=== PATIENT | female | born 1970 | race Caucasian/White ===

== ENCOUNTER → 2019-12-03 11:55 | Outpatient (CLI) | payer BC, OTHER, SELFPAY ==
--- NOTE | ~2019-12-03 | XR_ITS ---
EXAMINATION: XR abdomen/kub 1V INDICATION: Flank pain TECHNIQUE: Supine view of the abdomen was obtained. COMPARISON: CT, 07/21/2018 FINDINGS: There are phleboliths in the pelvis. No definite urinary tract calculi are identified. A la rge volume of colonic stool is present. The bowel gas pattern is normal. IMPRESSION: 1. No urinary tract calculi identified. 2. Constipation. Reviewed, dictated and finalized at location A. ENTARY SCHOOL TEACHER'S AIDE
== END ==
PROVIDERS: Visit Provider Physician Assistant
DX: K59.00 Constipation, unspecified (principal)
CPT/HCPCS: 74018

== ENCOUNTER → 2019-12-19 16:46 | Outpatient (CLI) | payer BC, OTHER, SELFPAY ==
--- NOTE | ~2019-12-19 | MR_ITS ---
EXAMINATION: MR shoulder LT wo con DATE: 12/19/2019 17:42 INDICATION: Unspecified rotator cuff tear at the left shoulder with persistent left shoulder pain pos t one year physical therapy. TECHNIQUE: Magnetic resonance imaging (MRI) of the left shoulder was performed without intravenous co ntrast. Sequences included axial PD-weighted FS FSE, coronal oblique PD-weighted FS FSE, coronal obli que T2-weighted FS FSE, sagittal PD-weighted FS FSE, and sagittal T1-weighted SE. COMPARISON: None. FINDINGS: Coracoacromial arch: The acromion undersurface is curved in morphology (type II). The coracoacromial ligament is normal. A cromioclavicular joint is normal. Rotator cuff: The supraspinatus, infraspinatus and teres minor tendons are normal. The subscapularis tendon is norm al. Normal rotator cuff muscle bulk and signal. Biceps tendon, glenoid labrum and glenohumeral cartilage: Long head of the biceps tendon is normal. Glenoid labrum is normal. Glenohumeral cartilage is normal. Fluid: Small amount of fluid in the long head biceps tendon sheath which is disproportionate to the physiolo gic amount fluid in the glenohumeral joint space consistent with mild bicipital tenosynovitis. No loo se osteochondral bodies. Abnormal fluid signal in the subacromial/subdeltoid bursa consistent to sugg est bursitis. Bones: Normal marrow signal with no edema, fracture or abnormal marrow replacing process. Mild cystic change at the greater tuberosity. IMPRESSION: 1. Mild bicipital tenosynovitis. Otherwise unremarkable left shoulder MRI. Reviewed, dictated and finalized at location A. KEEPER
== END ==
PROVIDERS: PCP Family Medicine; Visit Provider Orthopaedic Surgery
DX: M75.22 Bicipital tendinitis, left shoulder (principal)
CPT/HCPCS: 73221

== ENCOUNTER → 2020-01-02 12:16 | Outpatient (CLI) | payer BC, OTHER, SELFPAY ==
--- NOTE | ~2020-01-02 | CT_ITS ---
EXAMINATION: CT abdomen pelvis wo con EXAM DATE: 01/02/2020 12:44 INDICATION: Bilateral flank pain. Right oophorectomy. TECHNIQUE: Spiral CT of the abdomen and pelvis was performed without contrast. Axial, coronal and s agittal images were reviewed. The dose-length product (DLP) for this examination was 318.30 mGy-cm. The exposure was tailored according to patient size (auto mA exposure control), and iterative recons truction (ASIR) was used as additional dose reduction technique. Comparison is made to prior examinat ion from 07/13/2018. FINDINGS: The liver, spleen, adrenal glands and pancreas are unremarkable. Gallbladder is unremarkab le. No biliary obstruction. There is no nephrolithiasis or hydronephrosis. The uterus is antevert ed and morphologically normal. The bladder is unremarkable. There is no retroperitoneal or pelvic lymphadenopathy. The appendix is normal. The stomach and small bowel are unremarkable. There is colonic fluid, corre late for diarrhea. No free intraperitoneal gas. The heart is normal in size. There are no perica rdial or pleural effusions. The lung bases are unremarkable. There are no significant osseous abnor malities identified. IMPRESSION: 1. No nephrolithiasis, hydronephrosis or acute findings. 2. Colonic fluid. Reviewed, dictated and finalized at location B.
== END ==
PROVIDERS: Visit Provider Nurse Practitioner Adult Health
DX: R10.9 Unspecified abdominal pain (principal)
CPT/HCPCS: 74176

== ENCOUNTER 2020-05-26 13:33 | Outpatient (CLI) | payer BC, OTHER, SELFPAY ==
--- NOTE | ~2020-05-26 | MMUS_ITS ---
EXAMINATION: MM diagnostic [facility] BI w roberto carlos, US breast LT limited HISTORY: Follow-up breast mass TECHNIQUE: Additional 3-D tomosynthesis images of the breasts were performed and synthetic 2-D images were generated. CAD analysis was submitted and interpreted. High resolution left breast ultrasound w as performed. COMPARISON: Comparison to multiple prior studies sequentially, with oldest reviewed study dated 06/23. BREAST PARENCHYMAL COMPOSITION: The breasts are heterogenously dense, which may obscure small masses. FINDINGS: MAMMOGRAPHIC FINDINGS: The right breast is stable without evidence for malignancy. There are benign scattered breast calcifi cations. There is a 1 cm circumscribed mass upper outer quadrant of the left breast which is more pro minent than on prior examination. ULTRASOUND: Left breast ultrasound: There are multiple simple and complicated cysts of the left breast corresponding to the abnormality s een on mammogram. The largest cyst is located at 2:00, 2 cm from the nipple measuring 1.4 cm maximum dimension. IMPRESSION: 1. No evidence for malignancy in either breast. Multiple benign left breast cyst. 2. Routine yearly screening mammogram and regular clinical breast examination are recommended. BI-RADS Category 2: Benign finding(s). Reviewed, dictated and finalized at location A. IMPRESSION: 1. No evidence for malignancy in either breast. Multiple benign left breast cys t. 2. Routine yearly screening mammogram and regular clinical breast examination a re recommended. BI-RADS Category 2: Benign finding(s).
== END 2020-05-26 13:34 | disposition home or self-care (01) ==
LOC: ANHIMG 13:35
PROVIDERS: PCP Family Medicine; Visit Provider Family Medicine
DX: R92.8 Other abnormal and inconclusive findings on diagnostic imaging of breast (principal)
CPT/HCPCS: 76642; 77062; 77066; G0279

== ENCOUNTER 2020-06-02 14:20 | Outpatient (CLI) | payer BC, OTHER, SELFPAY ==
--- NOTE | ~2020-06-02 | US_ITS ---
EXAMINATION: US pelvic complete w TV EXAM DATE: 06/02/2020 15:18 INDICATION: Premenopausal menorrhagia. TECHNIQUE: Pelvic transabdominal and transvaginal sonogram was performed. There are multiple graysca le and Doppler images available for interpretation. There is no prior study for comparison. FINDINGS: Uterus measures 12.9 x 3.5 x 7.0 cm, and is morphologically normal. Endometrial stripe me asures 7 mm, within normal limits. There is a nabothian cyst. There is no free pelvic fluid. Right adnexa: The ovary is not identified. There is no adnexal mass. Left adnexa: The ovary is not identified. There is no adnexal mass. IMPRESSION: Unremarkable pelvic ultrasound exam. Reviewed, dictated and finalized at location A.
== END 2020-06-02 14:21 | disposition home or self-care (01) ==
PROVIDERS: PCP Family Medicine; Visit Provider Physician Assistant
DX: N92.4 Excessive bleeding in the premenopausal period (principal)
CPT/HCPCS: 76830; 76856

== ENCOUNTER → 2021-01-02 10:50 | Outpatient (CLI) | payer BC, OTHER, SELFPAY ==
--- NOTE | ~2021-01-02 | XR_ITS ---
EXAMINATION: XR lumbar spine 2-3V DATE: 01/02/2021 11:52 INDICATION: Low back pain TECHNIQUE: Anteroposterior and lateral views of the lumbar spine, and cone-down lateral view of the l umbosacral junction were obtained. COMPARISON: CT, 01/02/2020 FINDINGS: The vertebral body heights, alignment, and intervertebral disc spaces are normal. There is no fracture. Small degenerative osteophytes project from the anterior endplates of multiple vertebral bodies. IMPRESSION: 1. Mild lumbar spondylosis. Reviewed, dictated and finalized at location A. BASE SPECIALIST IMPRESSION: 1. Mild lumbar spondylosis.
== END ==
PROVIDERS: PCP Physician Assistant; Visit Provider Physician Assistant
DX: M47.896 Other spondylosis, lumbar region (principal)
CPT/HCPCS: 72100

== ENCOUNTER → 2021-02-06 11:41 | Outpatient (CLI) | payer BC, OTHER, SELFPAY ==
--- NOTE | ~2021-02-06 | XR_ITS ---
EXAMINATION: XR thoracic spine 2V DATE: 02/06/2021 12:39 INDICATION: Thoracic back pain TECHNIQUE: AP and lateral views of the thoracic spine are obtained. COMPARISON: None. FINDINGS: There is no fracture, dislocation, or subluxation. Mild loss of intervertebral disc space h eight is present in the midthoracic spine. The vertebral body heights are normal. Small degenerative osteophytes project from the anterior endplates of multiple vertebral bodies. IMPRESSION: 1. Mild thoracic spondylosis without acute findings. Reviewed, dictated and finalized at location B.
--- NOTE | ~2021-02-06 | XR_ITS ---
EXAMINATION:XR cervical spine 4-5V DATE: 02/06/2021 12:39 INDICATION: Neck pain TECHNIQUE: AP, lateral, lateral swimmers and odontoid views of the cervical spine are provided. COMPARISON: None FINDINGS: There are 2 mm of retrolisthesis of C3 on C4. The odontoid is intact. No fracture is identi fied. There is moderate loss of intervertebral disc space height at C5-6. Small degenerative osteophy shae project from the anterior endplates of C5 and C6. There is moderate facet and uncovertebral joint osteoarthritis of the mid and lower cervical spine. IMPRESSION: 1. Moderate cervical spondylosis without acute findings. Reviewed, dictated and finalized at location B.
== END ==
PROVIDERS: PCP Family Medicine; Visit Provider Physician Assistant
DX: M47.23 Other spondylosis with radiculopathy, cervicothoracic region (principal)
CPT/HCPCS: 72050; 72070

== ENCOUNTER 2021-02-13 12:35 | Outpatient (CLI) | payer BC, OTHER, SELFPAY ==
--- NOTE | ~2021-02-13 | MR_ITS ---
EXAMINATION: MR lumbar spine wo con DATE: 02/13/2021 13:11 INDICATION: Low back pain. TECHNIQUE: Magnetic resonance imaging (MRI) of the lumbar spine was performed without intravenous con trast. Sequences included sagittal T2-weighted FSE, sagittal T2-weighted FS FSE, sagittal T1-weighted FSE, and axial T2-weighted FSE. COMPARISON: Lumbar spine radiographs 01/02/2021 FINDINGS: There is 4 degrees levocurvature of lumbar spine. Vertebral body heights are normal. There is mildly decreased disc height at L4-L5. The distal spinal cord signal intensity is normal. The conu s medullaris is at L2. The following disc levels are specifically discussed: L1-L2: The disc does not extend beyond the endplate margin. There is no facet joint osteoarthritis. T here is no neural foraminal stenosis. There is no central canal stenosis. L2-L3: The disc does not extend beyond the endplate margin. There is mild bilateral facet joint osteo arthritis. There is no neural foraminal stenosis. There is no central canal stenosis. L3-L4: The disc does not extend beyond the endplate margin. There is no facet joint osteoarthritis. T here is no neural foraminal stenosis. There is no central canal stenosis. L4-L5: The disc is bulging. There is moderate bilateral facet joint osteoarthritis. There is mild kate ateral neural foraminal stenosis. There is mild central canal stenosis. L5-S1: The disc does not extend beyond the endplate margin. There is a right and moderate left facet joint osteoarthritis. There is no neural foraminal stenosis. There is no central canal stenosis. IMPRESSION: 1. Mild lumbar spondylosis. Reviewed, dictated and finalized at location B. IMPRESSION: 1. Mild lumbar spondylosis.
== END 2021-02-13 12:36 | disposition home or self-care (01) ==
PROVIDERS: PCP Family Medicine; Visit Provider Physician Assistant
DX: M47.896 Other spondylosis, lumbar region (principal)
CPT/HCPCS: 72148

== ENCOUNTER 2021-06-11 14:34 | Outpatient (CLI) | payer BC, OTHER, SELFPAY ==
--- NOTE | ~2021-06-11 | MM_ITS ---
EXAMINATION: MM screening [facility] BI w roberto carlos HISTORY: Screening mammogram TECHNIQUE: Craniocaudal and mediolateral oblique 3-D tomosynthesis images were obtained and synthetic 2-D images were generated. CAD analysis was submitted and interpreted. COMPARISON: 05/26/2020, 05/08/2019, 06/23/2017 BREAST PARENCHYMAL COMPOSITION: The breasts are heterogeneously dense, which may obscure small masses . FINDINGS: Obscured left breast masses have been previously characterized as cysts. There is no eviden ce of suspicious mass, calcification, or architectural distortion to suggest malignancy in either leslie ast. There has been no suspicious interval change. IMPRESSION: 1. No mammographic evidence of malignancy. 2. Recommend routine screening mammography in one year. BI-RADS Category 2: Benign finding(s). Reviewed, dictated and finalized at location A.
== END 2021-06-11 14:35 | disposition home or self-care (01) ==
LOC: ANHIMG 14:37
PROVIDERS: PCP Family Medicine; Visit Provider Family Medicine
DX: Z12.31 Encounter for screening mammogram for malignant neoplasm of breast (principal)
CPT/HCPCS: 77063; 77067

== ENCOUNTER 2022-08-13 09:52 | Outpatient (CLI) | payer BC, OTHER, SELFPAY ==
--- NOTE | ~2022-08-13 | MM_ITS ---
EXAMINATION: MM screening [facility] BI w roberto carlos HISTORY: Screening TECHNIQUE: Craniocaudal and mediolateral oblique 3-D tomosynthesis images were obtained and synthetic 2-D images were generated. CAD analysis was submitted and interpreted. COMPARISON: Comparison to multiple prior studies sequentially, with oldest reviewed study dated 06/23. BREAST PARENCHYMAL COMPOSITION: The breasts are extremely dense, which lowers the sensitivity of mamm ography FINDINGS: The right breast is stable without evidence for malignancy. There are developing partially obscured masses in the upper outer quadrant of the left breast. IMPRESSION: 1. Developing cluster of masses centered in the upper outer quadrant of the left breast. 2. Additional mammographic views and possible breast ultrasound are recommended. BI-RADS CATEGORY 0 - INCOMPLETE STUDY, NEED ADDITIONAL IMAGING EVALUATION. Reviewed, dictated and finalized at location A. IMPRESSION: 1. Developing cluster of masses centered in the upper outer quadrant of the lef t breast. 2. Additional mammographic views and possible breast ultrasound are recommended . BI-RADS CATEGORY 0 - INCOMPLETE STUDY, NEED ADDITIONAL IMAGING EVALUATION.
== END 2022-08-13 09:53 | disposition home or self-care (01) ==
LOC: ANHIMG 09:54
PROVIDERS: PCP Family Medicine; Visit Provider Physician Assistant
DX: Z12.31 Encounter for screening mammogram for malignant neoplasm of breast (principal); R92.8 Other abnormal and inconclusive findings on diagnostic imaging of breast
CPT/HCPCS: 77063; 77067

== ENCOUNTER 2022-08-23 01:53 | Day surgery (SDC) | payer BC, OTHER, SELFPAY ==
[2022-08-11 14:43] VITALS: BMI 22.9
--- NOTE | 2022-08-20 14:30 | PM.HPGS ---
History of Present Illness History of Present Illness Consent: Risks, benefits, and alternatives have been discussed and questions answered. Patient agrees to proceed with procedure. Chief complaint: hx of polyp Narrative: Ana Vaca is a 52 year old female referred for colon cancer screening. her maternal aunt and grandmother both had colon cancer. She herself had a polyp removed about 5 years ago. Review of Systems Review of Systems: All systems reviewed & are unremarkable except as noted in HPI and below PMFSH Social History Social History Living arrangements: with family Spiritual care concerns: No Meds Home Medications and Allergies Home Medications Medication Instructions Recorded Confirmed Type No Home Medications 12/03/19 08/11/22 History Allergies Allergy/AdvReac Type Severity Reaction Status Date / Time Dairy Allergy Intermediate SICK Uncoded 08/11/22 14:42 Exam Resp: Auscultation: clear to auscultation bilaterally Cardio: Rate: regular rate Rhythm: regular rhythm GI: GI Palp: Yes Soft to palpation and No Tenderness to palpation present (GI) Assessment and Plan Assessment and plan (1) Colon cancer screening: Code(s): Z12.11 - Encounter for screening for malignant neoplasm of colon Status: Acute Assessment and Plan: Colonoscopy with possible biopsy or polypectomy or cautery or injection of substances.
[2022-08-23 08:09] VITALS: BP 124/75; PULSE 72; RESP 16; TEMP 36.1; O2SAT 100; BMI 23.1
[2022-08-23] MEDS: LACTATED RINGERS 1,000 ML 150 ML IV CONT (08:21)
--- NOTE | 2022-08-23 08:41 | P.PNAN_ITS ---
Anes - Initial Pre Proc Eval Procedure: Operation Date: 08/23/22 09:00 Proposed Procedures p Screening Colonoscopy - Siddharth Ascencio MD Date/Time: 08/23/22 08:41 Surgeon: Siddharth Ascencio MD Pre Op Diagnosis: hx of polyp Patient Data Age: 52 Gender: F Height: 1.57 m Weight: 57.5 kg Last Vital Signs Temp 36.1 C L 08/23/22 08:09 Pulse 72 08/23/22 08:09 Resp 16 08/23/22 08:09 BP 124/75 08/23/22 08:09 Pulse Ox 100 08/23/22 08:09 O2 Del Method Room Air 08/23/22 08:09 Allergies Allergy/AdvReac Type Severity Reaction Status Date / Time Dairy Allergy Intermediate SICK Uncoded 08/11/22 14:42 Home Medications Medication Instructions Recorded Confirmed Type No Home Medications 12/03/19 08/11/22 History Patient hx anesthesia problems: none Family hx anesthesia problems: none Results Review: All pre-operative results and documents have been reviewed as part of the pre- operative evaluation. PMFSH Past Medical History Medical History (Updated 08/23/22 @ 08:43 by Michele Norton MD) Anemia Surgical History Surgical History (Updated 08/23/22 @ 08:43 by Michele Norton MD) H/O colonoscopy Social History Social History Living arrangements: with family Spiritual care concerns: No Anes - Eval Final PreProcedure Day of Procedure 08/23/22 08:41 Patient weight: normal Heart: regular rate and rhythm Lungs: clear to auscultation Airway: Mallampati scale class II Neurological: alert and oriented Last oral intake: >/= 8 hours ASA classification: II Emergent: no Anesthetic plan: proceed Anesthesia type and monitoring: general GIVS and standard monitoring Results Review: All pre-operative results and documents have been reviewed as part of the pre- operative evaluation. Informed Consent: The patient's anesthetic plan and its attendant risks and benefits were discussed with the patient/family/POA. Questions were solicited and answers provided to the satisfaction of the patient/family/POA.
[2022-08-23 09:16] VITALS: BP 100/59; PULSE 67; RESP 18; O2SAT 99
[2022-08-23 09:26] VITALS: BP 98/64; PULSE 63; RESP 19; O2SAT 100
[2022-08-23 09:36] VITALS: BP 102/71; PULSE 64; RESP 14; O2SAT 100
== END 2022-08-23 09:45 | disposition home or self-care (01) ==
PROVIDERS: PCP Physician Assistant; Visit Provider Internal Medicine Gastroenterology
PROC: 0DJD8ZZ Inspection of Lower Intestinal Tract, Via Natural or Artificial Opening Endoscopic (ICD-10-PCS; CPT 45378; principal; 2022-08-23 09:00)
DX: Z12.11 Encounter for screening for malignant neoplasm of colon (principal); K63.5 Polyp of colon; Z80.0 Family history of malignant neoplasm of digestive organs
CPT/HCPCS: 45385; 88305; J2704; J7120

== ENCOUNTER 2022-08-26 12:10 | Outpatient (CLI) | payer BC, OTHER, SELFPAY ==
--- NOTE | ~2022-08-26 | MMUS_ITS ---
EXAMINATION: MM diagnostic [facility] LT w roberto carlos, US breast LT complete HISTORY: Left breast mass follow-up TECHNIQUE: Additional 3-D tomosynthesis images of the left breast were performed and synthetic 2-D im ages were generated. CAD analysis was submitted and interpreted. High resolution complete left breast ultrasound was performed. COMPARISON: Comparison to multiple prior studies sequentially, with oldest reviewed study dated 06/23. BREAST PARENCHYMAL COMPOSITION: The breasts are heterogeneously dense, which may obscure small masses FINDINGS: MAMMOGRAPHIC FINDINGS: There is a 2.1 cm mass in the upper outer quadrant of the left breast. There are benign appearing dequan cifications. No suspicious architectural distortion. ULTRASOUND: Complete left breast US of all 4 quadrants of the breasts and retroareolar region was reviewed. There are multiple left breast cysts, largest at 2:00, 5 cm from the nipple measuring 2.1 x 1.8 x 1 cm cor responding to the mass seen on mammogram. There are multiple additional smaller cyst throughout the l eft breast. At 6:00 there is an oval circumscribed hypoechoic mass with low level internal echoes, pa rallel orientation and no posterior features measuring 7 mm maximum dimension. IMPRESSION: 1. Multiple left breast cysts. Probable benign hypoechoic 7 mm left breast mass at 6:00. 2. Recommend 6 month follow-up Limited left breast ultrasound BI-RADS category 3, probably benign findings. Reviewed, dictated and finalized at location A. IMPRESSION: 1. Multiple left breast cysts. Probable benign hypoechoic 7 mm left breast mass at 6:00. 2. Recommend 6 month follow-up Limited left breast ultrasound BI-RADS category 3, probably benign findings.
== END 2022-08-26 12:11 | disposition home or self-care (01) ==
PROVIDERS: PCP Physician Assistant; Visit Provider Family Medicine
DX: N63.21 Unspecified lump in the left breast, upper outer quadrant (principal); R92.8 Other abnormal and inconclusive findings on diagnostic imaging of breast
CPT/HCPCS: 76641; 77061; 77065; G0279

== ENCOUNTER 2023-02-15 09:50 | Outpatient (CLI) | payer BC, OTHER, SELFPAY ==
--- NOTE | ~2023-02-15 | CT_ITS ---
EXAMINATION:CT diagnostic chest wo con DATE: 02/15/2023 10:05 INDICATION: Sternal pain. TECHNIQUE: Computed tomography (CT) of the chest was performed without intravenous contrast. Automate d exposure control and iterative reconstruction technique were employed. The dose-length product (DLP ) was 154.87 mGy-cm. COMPARISON: CT abdomen and pelvis 01/02/2020 FINDINGS: There is mild scarring at the lung apices. Again seen is a 5 mm nodule in left lower lobe, likely benign. There is a 4 mm nodule in left lower lobe, likely benign. No pleural effusion. The hea rt size is normal. No pericardial effusion. There is mild thoracic spondylosis. There is mild pectus excavatum. No sternal fracture. IMPRESSION: 1. No etiology for the patient's symptoms. Reviewed, dictated and finalized at location A.
== END 2023-02-15 09:51 | disposition home or self-care (01) ==
PROVIDERS: PCP Family Medicine; Visit Provider Physician Assistant
DX: R07.9 Chest pain, unspecified (principal)
CPT/HCPCS: 71250

== ENCOUNTER → 2023-04-05 11:31 | Outpatient (CLI) | payer BC, OTHER, SELFPAY ==
--- NOTE | ~2023-04-05 | US_ITS ---
US breast LT limited DATE: 04/05/2023 11:43 INDICATION: Follow-up of probable benign left breast mass at 6:00 TECHNIQUE: Real-time imaging and color flow imaging targeted 6:00 area COMPARISON: 09/12/2022 left breast ultrasound FINDINGS: There are 2 contiguous circumscribed sonolucency with through transmission, no internal vas cularity, one measuring up to 7 mm, the other 3 mm dimension. These are benign in appearance. IMPRESSION: BI-RADS Category 2: Benign Recommendation: Routine mammographic screening Reviewed, dictated and finalized at Location A. Reviewed, dictated and finalized at location A.
== END ==
PROVIDERS: PCP Physician Assistant; Visit Provider Physician Assistant
DX: N63.25 Unspecified lump in the left breast, overlapping quadrants (principal)
CPT/HCPCS: 76642

== ENCOUNTER 2023-11-03 14:45 | Outpatient (CLI) | payer BC, OTHER, SELFPAY ==
[2023-11-03 15:04] LABS: Basophils Absolute Auto 0.1 K/mm3 (0.0-0.1); Basophils Percent Auto 1.2 % (0.2-1.2); Eosinophils Absolute Auto 0.3 K/mm3 (0-0.3); Eosinophils Percent Auto 4.9 % (0-4.4); Hematocrit 43.1 % (37.0-47.0); Hemoglobin 14.1 g/dL (12.0-15.0); Immature Granulocyte Absolute 0.02 K/mm3 (0.00-0.031); Immature Granulocyte Percent A 0.3 % (0-0.5); Lymphocytes Absolute Auto 1.73 K/mm3 (0.9-3.2); Mean Corpuscular HGB Conc 32.7 g/dl (32-36); Mean Corpuscular Hemoglobin 31.4 pg (26-34); Mean Platelet Volume 10.1 fl (7.4-10.4); Monocytes Absolute Auto 0.7 K/mm3 (0.1-0.6); Monocytes Percent Auto 9.6 % (2.6-8.5); Neutrophils Absolute Auto 4.1 K/mm3 (1.3-6.7); Platelet Count Result 282 k/mm3 (150-375); Red Blood Count 4.49 M/mm3 (4.2-5.4); Red Cell Distribution Width 12.8 % (11.5-14.5); White Blood Count 6.9 K/mm3 (4.5-10.0)
== END 2023-11-03 14:46 | disposition home or self-care (01) ==
LOC: ANHLAB 14:47
PROVIDERS: PCP Physician Assistant; Visit Provider Obstetrics & Gynecology
DX: Z01.818 Encounter for other preprocedural examination (principal); N81.4 Uterovaginal prolapse, unspecified
CPT/HCPCS: 36415; 85025; 86850; 86900; 86901

== ENCOUNTER 2023-11-11 00:25 | Day surgery (SDC) | payer BC, OTHER, SELFPAY ==
[2023-11-02 14:36] VITALS: BMI 23.8
--- NOTE | 2023-11-02 14:54 | PC.NURSE ---
Report to the Outpatient Waiting Room, entrance under the green pavilion located off [facility], at time _11:30AM___ on date Tue11/11/23 . Planned Procedure Time: _1:30PM . Time changes happen often and if your time is changed the preop area will call you the afternoon before. - You and your visitors (MAXIMUM OF 2 VISITORS IN THE PREOP AREA) will be asked to self-screen and do not enter if you have any COVID symptoms. - A mask is optional within the hospital at this time. *BRING A SMALL OVERNIGHT BAG IN PREPARATION FOR YOUR ADMISSION TO THE [facility]* Patients may have clear liquids (water, carbonated beverages, clear teas, apple juice) until 3 hours prior to surgery (10:30AM) with a maximum of 20 ounces. - No food from midnight until time of surgery. NO GUMS, MINTS, OR HARD CANDY - Take the following medications with a SIP of water the morning of surgery: __NONE DO NOT STOP ANY OF YOUR OTHER PRESCRIPTION MEDICATIONS PRIOR TO SURGERY ?EXCEPT THE FOLLOWING Medications to discontinue per physician ___ALL SUPPLEMENTS Date to take last dose___11/08/23 Please no make-up, nail portuguese, hairspray, perfume, deodorant, or body powder the day of surgery. No jewelry (including any body piercings) or valuables the day of surgery, leave them at home. Please take a shower or bath the night before, or the morning of, surgery with an antibacterial soap. Wear comfortable, loose fitting clothing. - Jewelry must be removed prior to entering the operating room. Rings and piercings that are not removed may be cut off. - The hospital will not accept responsibility for valuables. - Please leave all valuables, including medications, at home the day of surgery. If you are going home after surgery, a licensed transport driver must drive you home. - NO public transportation without another adult if you receive anesthesia. - We recommend that an adult stay with you for 24 hours following discharge. - We also recommend that you do not drive, make important decision, drink alcoholic beverages, or take any drugs that were not prescribed by your health care provider for at least 24 hours after your discharge time. Follow any additional instructions given to you from your surgeon. If you or anyone in your household have experienced Covid symptoms in the past week, please notify your surgeon or the nurse liaison at the phone number below for possible testing. Telephone instructions given to __STEPLANIIE and asked if any additional questions and then verbalized understanding. Patient advised to call surgeon office or pre surgery nurse liaison [phone] if any additional questions.
--- NOTE | 2023-11-08 07:58 | PM.IMHP ---
H&P: HPI History of Present Illness Date/Time: 11/08/23 07:58 Chief Complaint: Uterine prolapse with enlarged uterus and pelvic pain Narrative: Sh 53-year-old female 3 para 2 admitted for robotic hysterectomy bilateral salpingo-oophorectomy secondary to uterine prolapse with an enlarged uterus and history of uterine fibroids. Risks and benefits reviewed including but not exclusive , aspiration pneumonia, bleeding, transfusion, perforation injury to bowel, bladder, ureters, or other internal organs with need for open laparotomy. She received the [employer] handout entitled hysterectomy. As well as the de Ling handout. She had all questions answered. She asked to proceed PMFSH Past Medical History Medical History Chronic sinusitis Endometriosis GERD (gastroesophageal reflux disease) Other fatigue Vitamin D deficiency Surgical History Surgical History H/O colonoscopy History of D&C miscarriage 2000 History of laparoscopy endometriosis 1994, 1997 History of right salpingo-oophorectomy fibroid removal 2015 History of surgery on lower extremity closed reduction due to fracture 1979 Social History Social History Smoking status: Never smoker Alcohol intake: never Substance use: never Substance use type: does not use Lack of Transportation: No Lack of Food: Never True Current Housing: I Have Housing Concerned About Future Housing: No Difficulty Paying Gas/Electric Bills: No Difficulty Paying for Meds: No Currently Unemployed: YES Education: Trade/Vocational Certificate Difficulty w/ Childcare or Family Care: No Living arrangements: with family Occupation/Education: unemployed Gender identity (if verbalized by the patient): Female Sexual Orientation (if Verbalized by the Patient): Straight or Heterosexual Spiritual care concerns: No Meds Home Medications and Allergies Home Medications Medication Instructions Recorded Confirmed Type cholecalciferol (vitamin D3) 25 25 mcg PO DAILY #30 caps 02/11/23 11/02/23 Rx mcg (1,000 unit) capsule multivitamin with minerals-folic 1 tablet PO ONCE 11/02/23 11/02/23 History acid 80 mcg chewable tablet (Centrum Adult 50 Plus) Allergies Allergy/AdvReac Type Severity Reaction Status Date / Time Dairy Allergy Intermediate SICK Uncoded 02/11/23 11:26 Exam Const: General: cooperative, healthy appearing, comfortable and average body habitus Orientation/consciousness: oriented to person, oriented to place and oriented to time HENMT: Head: normal to inspection Resp: Effort & Inspection: normal respiratory effort Cardio: Rate: regular rate Rhythm: regular rhythm Heart sounds: S1 normal heart sound present and S2 normal heart sound present GI: Inspection: normal to inspection : External Female Exam: normal external appearance Speculum Exam - Vagina: normal appearance of the vagina Speculum Exam - Cervix: normal appearance of the cervix (Second-degree prolapse) Bimanual exam- vagina & uterus: enlarged and Uterine tenderness Bimanual Exam- Adnexa, other: normal adnexae Assessment and Plan Assessment and plan (1) Uterine prolapse: Code(s): N81.4 - Uterovaginal prolapse, unspecified Status: Acute (2) Enlarged uterus: Code(s): N85.2 - Hypertrophy of uterus Status: Acute (3) Pelvic pain: Code(s): R10.2 - Pelvic and perineal pain Status: Acute Plan Robotic total vaginal hysterectomy bilateral salpingo-oophorectomy
[2023-11-11] VITALS (10 sets, daily range): BP systolic 93–120; BP diastolic 60–79; PULSE 59–87; RESP 9–20; TEMP 36.5–37.2; O2SAT 98–100
--- NOTE | 2023-11-11 06:33 | WPDHPUPDATE1 ---
History and Physical Update Update Date/Time: 11/11/23 06:33 History and Physical has been reviewed, including an updated exam of the patient. There are NO changes in the patient's condition. Risks, benefits, and alternatives have been discussed and questions answered. Patient agrees to proceed with procedure.
[2023-11-11] MEDS: ACETAMINOPHEN 500 MG TABLET 1000 MG PO (12:08)
[2023-11-11] MEDS: LACTATED RINGERS 1,000 ML 30 ML IV CONT ×2 (12:15→15:24)
[2023-11-11] MEDS: KETOROLAC 15 MG/ML VIAL (*BKC) IV PUSH (12:20)
--- NOTE | 2023-11-11 12:51 | WPDANESEPPF ---
Anes - Initial Pre Proc Eval Procedure: Operation Date: 11/11/23 13:30 Proposed Procedures p Robotic Assisted Total Vaginal Hysterectomy with Bilateral Salpingo-oophorectomy - Michele Torres MD Date/Time: 11/11/23 12:51 Surgeon: Michele Torres MD Pre Op Diagnosis: Uterine Prolapse Enlarged Uterus, Pevic Pain Patient Data Age: 53 Gender: F Height: 1.57 m Weight: 60.5 kg Last Vital Signs Temp 99.0 F 11/11/23 11:44 Pulse 79 11/11/23 11:44 Resp 20 11/11/23 11:44 BP 116/79 11/11/23 11:44 Pulse Ox 98 11/11/23 11:44 O2 Del Method Room Air 11/11/23 11:44 Allergies Allergy/AdvReac Type Severity Reaction Status Date / Time Dairy Allergy Intermediate diarrhea/stomach Uncoded 11/11/23 11:41 pain Home Medications Medication Instructions Recorded Confirmed Type cholecalciferol (vitamin D3) 25 25 mcg PO DAILY #30 caps 02/11/23 11/11/23 Rx mcg (1,000 unit) capsule multivitamin with minerals-folic 1 tablet PO ONCE 11/02/23 11/11/23 History acid 80 mcg chewable tablet (Centrum Adult 50 Plus) hydrocodone 5 mg-acetaminophen 325 1 tablet PO Q4H PRN pain #30 tabs 11/11/23 Rx mg tablet Patient hx anesthesia problems: none Family hx anesthesia problems: none Results Review: All pre-operative results and documents have been reviewed as part of the pre-operative evaluation. [facility] Past Medical History Medical History Chronic sinusitis Endometriosis GERD (gastroesophageal reflux disease) Other fatigue Vitamin D deficiency Surgical History Surgical History H/O colonoscopy History of D&C miscarriage 2000 History of laparoscopy endometriosis 1994, 1997 History of right salpingo-oophorectomy fibroid removal 2015 History of surgery on lower extremity closed reduction due to fracture 1979 Social History Social History Smoking status: Never smoker Alcohol intake: never Substance use: never Substance use type: does not use Lack of Transportation: No Lack of Food: Never True Current Housing: I Have Housing Concerned About Future Housing: No Difficulty Paying Gas/Electric Bills: No Difficulty Paying for Meds: No Currently Unemployed: YES Education: Trade/Vocational Certificate Difficulty w/ Childcare or Family Care: No Living arrangements: with family Occupation/Education: unemployed Gender identity (if verbalized by the patient): Female Sexual Orientation (if Verbalized by the Patient): Straight or Heterosexual Spiritual care concerns: No Anes - Eval Final PreProcedure Day of Procedure 11/11/23 12:51 Patient weight: normal Heart: regular rate and rhythm Lungs: clear to auscultation Airway: Mallampati scale class II Neurological: alert and oriented Last oral intake: >/= 8 hours ASA classification: II Emergent: no Anesthetic plan: proceed Anesthesia type and monitoring: general ETT and standard monitoring Results Review: All pre-operative results and documents have been reviewed as part of the pre-operative evaluation. Informed Consent: The patient's anesthetic plan and its attendant risks and benefits were discussed with the patient/family/POA. Questions were solicited and answers provided to the satisfaction of the patient/family/POA.
[2023-11-11] MEDS: ceFAZolin 2 GM/D5W 50 ML 2 GM/50 ML BAG IVPB (13:40)
--- NOTE | 2023-11-11 14:50 | P.OP_ITS ---
Procedure Note - Detailed Date of Procedure 11/11/23 Pre-op Diagnosis Uterine Prolapse Enlarged Uterus, Pevic Pain Post-op Diagnosis Same Procedure Performed Robotic total vaginal hysterectomy left salpingo-oophorectomy Surgeon Michele Torres MD Anesthesia General Indications this is 53-year-old uterus bleeding status post right salpingo-oophorectomy Findings enlarged uterus. Absent right ovary and tube. Description of Procedure Patient was prepped draped sterile fashion placed in dorsal lithotomy position. General trach anesthesia weighted speculum placed post vagina. Anterior lip of the cervix grasped with single-tooth tenaculum. Uterus sounded to 10cm. Serial dilatation with fragmented dilators performed followed by passes the 8. BREANNA and the 3. 0.5 cold cup. Next the 16 [place] catheter was placed in the bladder and a weighted speculum was removed. The gloves were changed. A supraumbilical incision made the Veress needle passed in the abdomen. Abdomen filled with CO2 gas [id number] the 8mm trocar advanced in the abdomen. Downside visualized no injury seen. Patient placed in Trendelenburg and right left lateral quadrant incisions made. 8mm trocars advanced under direct vi sualization assuring no injury. Right upper quadrant incision was made in the 8mm trocar advanced under direct visualization assuring injury. The robot was docked. Attention was turned to the student counselor the left round ligament was grasped, burned, cut. Anteriorly a bladder flap was formed by sharply dissecting the peritoneum and reflecting the bladder caudally to the opposite round ligament which was clamped, burned, cut. The left infundibulopelvic structure was skeletonized to remove the left ovary and tube. This was clamped burned and cut and brought to the level of previously cut round ligament. The cardinal broad ligaments on the left were then serially skeletonized clamping burning cutting and coming down the lateral edge until the uterine vessels could be seen the left these were individually clamped, burned, cut. Cardinal broad ligaments on the right were skeletonized clamping burning cutting blood in the cervix uterus until the uterine vessels could be seen on right. These tortuous and there were individually clamped, burned, cut. Blanching the uterus was started on a colpotomy incision was made. Cervix uterus left ovary and tube removed through the vagina. The vagina then closed with continuous running 0 V lock from lateral edge to lateral edge and back to the midline. Irrigation undertaken until clear and the raw surface areas sprinkled with [place] term. The robot was undocked. The gas removed from the abdomen. The incisions closed with 4-0 Monocryl and glue. The patient was awakened went to recovery in satisfactory condition. All sponge, needle, instrument counts were correct. There were no immediate complications Estimated Blood Loss 25 Drains No Packing No Pathology Yes Complications No immediate complications Condition Stable Disposition PACU
--- NOTE | 2023-11-11 14:53 | P.DS_ITS ---
DS: Admitting Diagnosis Discharge Date 11/12/2023 Admitting Diagnosis enlarged uterus/pelvic pain/ uterine prolapse DS: Discharge Diagnosis Discharge Diagnosis (1) Pelvic pain: Code(s): R10.2 - Pelvic and perineal pain Status: Acute (2) Enlarged uterus: Code(s): N85.2 - Hypertrophy of uterus Status: Acute (3) Uterine prolapse: Code(s): N81.4 - Uterovaginal prolapse, unspecified Status: Acute DS: Summary Hospital Course Reason for hospitalization: patient was admitted for robotic total vaginal hysterectomy and left salpingo- oophorectomy on 11/11/2023. Hospital Course: Patient had unremarkable procedure on 1923. Her hospital course was unremarkable. She remained afebrile. She was up,, eating regular diet, ambulating, and generally without complaints. Time Spent with Patient Time attestation: Total time spent providing and/or coordinating discharge services: Exam Const: General: cooperative, healthy appearing and comfortable Nutritional Appearance: average body habitus Orientation/consciousness: oriented to person, oriented to place and oriented to time HENMT: Head: normal to inspection Resp: Effort & Inspection: normal respiratory effort Cardio: Rate: regular rate Rhythm: regular rhythm Heart sounds: S1 normal heart sound present and S2 normal heart sound present GI: Inspection: normal to inspection and incision ( Wounds clean dry and intact) DS: Data Data Completed and Pending Pending studies at discharge: Pending at discharge 11/11/23 14:00 Surgical [PTH] Routine Surgical [PTH] Routine Discharge Plan Discharge Patient Disposition: Home, Self-Care Patient Instructions: Laparoscopic Hysterectomy (DC) Stand Alone Forms: General Discharge Instructions Follow-up/Referrals: Michele Ayala MD [Physician] - 2 Weeks Discharge Medications: New hydrocodone-acetaminophen 5-325 mg tablet 1 tablet PO Q4H PRN (Reason: pain) Qty: 30 0RF No Action cholecalciferol (vitamin D3) 25 mcg (1,000 unit) capsule 25 mcg PO DAILY Qty: 30 0RF Centrum Adult 50 Plus 80 mcg Tablet,Chewable 1 tablet PO ONCE
[2023-11-11] MEDS: fentaNYL CITRATE INJ (*CRX) 100 MCG/2 ML VIAL 25 MCG IV PUSH ×7 (15:18→16:14)
--- NOTE | 2023-11-11 16:40 | ADMGEN ---
This patient, Ana Vaca, was admitted to OB 2nd Floor Room 288-00. Patient/family oriented to hospital policies and general routines including ID bracelet, bed and alarms, visiting hours, pain management, procedures, bathroom and other care routines, personal items, smoking policy, room service/diet, and visiting hours. Information on how to activate the Rapid Response Team has been discussed. Patient/Family are encouraged to report perceived risks to care and to ask questions if they do not understand what they are told or what they should do.
[2023-11-11] MEDS: KETOROLAC 30 MG/ML VIAL (*BKC) IV PUSH (17:04)
[2023-11-11] MEDS: DEXTROSE 5%/LACTATED RINGERS 1,000 ML 125 ML IV CONT (17:04)
[2023-11-11] MEDS: ONDANSETRON INJ 4 MG/2 ML VIAL IV PUSH (17:09)
[2023-11-11] MEDS: HYDROcodone/acetaminophen (*CRX) 5-325 MG TABLET 1 TAB PO (20:20)
[2023-11-12] VITALS: BP 107/68; PULSE 74; RESP 16; TEMP 37.2; O2SAT 98
[2023-11-12] MEDS: HYDROcodone/acetaminophen (*CRX) 5-325 MG TABLET 1 TAB PO ×2 (04:32→07:55)
[2023-11-12] MEDS: IBUPROFEN 600 MG TABLET PO (04:32)
[2023-11-12 04:35] VITALS: BP 110/63; PULSE 71; RESP 18; TEMP 36.9
[2023-11-12 05:43] LABS: Basophils Percent Auto 0.2 % (0.2-1.2); Hematocrit 40.7 % (37.0-47.0); Hemoglobin 13.3 g/dL (12.0-15.0); Immature Granulocyte Absolute 0.08 K/mm3 (0.00-0.031); Immature Granulocyte Percent A 0.5 % (0-0.5); Lymphocytes Absolute Auto 0.95 K/mm3 (0.9-3.2); Lymphocytes Percent Auto 6.5 % (18.3-44.2); Mean Corpuscular HGB Conc 32.7 g/dl (32-36); Mean Corpuscular Hemoglobin 31.2 pg (26-34); Mean Corpuscular Volume 95.5 fl (80-100); Mean Platelet Volume 10.8 fl (7.4-10.4); Monocytes Absolute Auto 0.9 K/mm3 (0.1-0.6); Monocytes Percent Auto 6.1 % (2.6-8.5); Neutrophils Absolute Auto 12.6 K/mm3 (1.3-6.7); Neutrophils Percent Auto 86.7 % (45.5-73.1); Platelet Count Result 261 k/mm3 (150-375); Red Blood Count 4.26 M/mm3 (4.2-5.4); Red Cell Distribution Width 12.6 % (11.5-14.5); White Blood Count 14.6 K/mm3 (4.5-10.0)
[2023-11-12] MEDS: DOCUSATE SODIUM 100 MG CAPSULE PO (07:54)
[2023-11-12 07:55] VITALS: BP 112/64; PULSE 63; RESP 16; TEMP 37.2; O2SAT 98
[2023-11-12] MEDS: ENOXAPARIN 40 MG/0.4 ML SYRINGE SUB-Q (07:55)
--- NOTE | 2023-11-12 08:07 | PM.GYNPNOP ---
ENVIRONMENTAL INSPECTOR - A/P Postoperative Procedures: Procedures Operation Date: 11/11/23 13:30 Actual Procedure Side Surgeon p Robotic Assisted Total Vaginal Hysterectomy with Bilateral Salpingo-oophorectomy Bilateral Michele Torres MD Postoperative day: 1 Postoperative status: doing well Postoperative plan: routine post-op care and discharge Time Spent With Patient Time: Total time spent is greater than 50% in coordination of care (as documented) at patient's floor/unit and/or counseling patient: Time with patient: less than 15 minutes ENVIRONMENTAL INSPECTOR- PN:Subj Post-Op Subjective Date/time seen: 11/12/23 08:07 Subjective: patient reports feeling better and pain is well controlled Exam Narrative: inc c/d/i abdomen soft, nt ENVIRONMENTAL INSPECTOR - PN: Obj Data Vital Signs Vital Signs: Vital Signs - 24 hr 11/11/23 11:44 11/11/23 15:05 11/11/23 15:20 Temperature 99.0 F 97.7 F Pulse Rate 79 68 59 L Respiratory Rate 20 12 16 Blood Pressure 116/79 120/66 120/73 Pulse Oximetry 98 100 100 Oxygen Delivery Room Air Simple Face Mask Simple Face Mask Oxygen Flow Rate 10 10 11/11/23 15:10 11/11/23 15:35 11/11/23 15:50 Temperature Pulse Rate 59 L 63 Respiratory Rate 9 L 14 Blood Pressure 104/67 95/60 L Pulse Oximetry 98 98 Oxygen Delivery Simple Face Mask Simple Face Mask Room Air Oxygen Flow Rate 10 10 11/11/23 16:05 11/11/23 16:20 11/11/23 16:30 Temperature Pulse Rate 69 75 61 Respiratory Rate 14 19 10 L Blood Pressure 118/66 104/79 113/73 Pulse Oximetry 99 98 99 Oxygen Delivery Room Air Room Air Room Air Oxygen Flow Rate 11/11/23 16:40 11/11/23 16:40 11/11/23 20:20 Temperature 97.8 F 98.8 F Pulse Rate 71 87 Respiratory Rate 12 18 Blood Pressure 93/60 L 110/64 Pulse Oximetry 99 99 Oxygen Delivery Room Air Oxygen Flow Rate 11/11/23 20:20 11/12/23 00:00 11/12/23 04:35 Temperature 99 F 98.5 F Pulse Rate 74 71 Respiratory Rate 16 18 Blood Pressure 107/68 110/63 Pulse Oximetry 98 Oxygen Delivery Room Air Oxygen Flow Rate 11/12/23 04:35 Temperature Pulse Rate Respiratory Rate Blood Pressure Pulse Oximetry Oxygen Delivery Room Air Oxygen Flow Rate Intake/Output Intake/Output: Intake & Output 11/09/23 11/10/23 11/11/23 11/12/23 23:59 23:59 23:59 23:59 Intake Total 1250 1000 Output Total 680 Balance 570 1000 Meds/Results Medications: Active Medications Generic Name Dose Route Start Last Admin Trade Name Freq PRN Reason Stop Dose Admin Hydrocodone Bitart/Acetaminophen 1 tab 11/11/23 16:36 11/12/23 07:55 Hydrocodone/Acetaminophen (*Crx) 5-325 Mg Tablet PO 1 tab Q3H PRN Administration Pain Rated 5 or Less Hydrocodone Bitart/Acetaminophen 1 tab 11/11/23 16:36 Hydrocodone/Acetaminophen (*Crx) 10-325 Mg Tablet PO Q3H PRN Pain Rated 6 or Greater Docusate Sodium 100 mg 11/11/23 17:00 11/12/23 07:54 Docusate Sodium 100 Mg Capsule PO 100 mg BID SARITA Administration Enoxaparin Sodium 40 mg 11/12/23 09:00 11/12/23 07:55 Enoxaparin 40 Mg/0.4 Ml Syringe SUB-Q 40 mg DAILY SARITA Administration Dextrose/Lactated Ringer's 1,000 mls @ 125 mls/hr 11/11/23 16:36 11/12/23 01:04 Dextrose 5%/Lactated Ringers IV CONT Infused .Q8H SARITA Infusion Ibuprofen 600 mg 11/11/23 16:36 11/12/23 04:32 Ibuprofen 600 Mg Tablet PO 600 mg Q6H PRN Administration Cramping Ketorolac Tromethamine 30 mg 11/11/23 16:36 11/11/23 17:04 Ketorolac 30 Mg/Ml Vial (*Bkc) IV PUSH 11/16/23 16:35 30 mg Q6H PRN Administration Pain Rated 4-6 Naloxone HCl 0.1 mg 11/11/23 16:36 Naloxone Hcl 0.4 Mg/Ml Vial IV PUSH Q2M PRN Respiratory rate less than 10 Ondansetron HCl 4 mg 11/11/23 16:36 11/11/23 17:09 Ondansetron Inj 4 Mg/2 Ml Vial IV PUSH 4 mg Q6H PRN Administration Nausea And Vomiting Simethicone 80 mg 11/11/23 16:36 Simethicone 80 Mg Tab.Chew PO Q2H PRN
== END 2023-11-12 09:11 | disposition home or self-care (01) ==
LOC: ANHSURGERY 11:26 → ANHOB2 16:54
PROVIDERS: PCP Physician Assistant; Visit Provider Obstetrics & Gynecology
PROC: (CPT 58552; principal; 2023-11-11 13:30)
DX: N88.8 Other specified noninflammatory disorders of cervix uteri (principal); N83.8 Other noninflammatory disorders of ovary, fallopian tube and broad ligament; N83.12 Corpus luteum cyst of left ovary; D25.1 Intramural leiomyoma of uterus; D25.2 Subserosal leiomyoma of uterus; N80.00 Endometriosis of the uterus, unspecified; K21.9 Gastro-esophageal reflux disease without esophagitis; E55.9 Vitamin D deficiency, unspecified; J32.9 Chronic sinusitis, unspecified; Z79.891 Long term (current) use of opiate analgesic; Z98.890 Other specified postprocedural states; Z90.721 Acquired absence of ovaries, unilateral
CPT/HCPCS: 58552; S2900; 36415; 85025; 88307; 99199; A9270; J0330; J0690; J1100; J1650; J1885; J2250; J2405; J2704; J3010; J7030; J7120; J7121

== ENCOUNTER → 2023-12-22 14:23 | Outpatient (CLI) | payer BC, OTHER, SELFPAY ==
--- NOTE | ~2023-12-22 | MM_ITS ---
EXAMINATION: MM screening [place] BI w roberto carlos HISTORY: Screening TECHNIQUE: Craniocaudal and mediolateral oblique 3-D tomosynthesis images were obtained and synthetic 2-D images were generated. CAD analysis was submitted and interpreted. COMPARISON: Comparison to multiple prior studies sequentially, with oldest reviewed study dated 06/23. BREAST PARENCHYMAL COMPOSITION: The breasts are heterogeneously dense, which may obscure small masses . FINDINGS: There is possible new areas of architectural distortion located centrally in both breasts o n CC views. There are scattered benign-appearing calcifications. There is a stable benign-appearing m ass in the upper outer quadrant of the left breast. IMPRESSION: 1. Possible new areas of lateral architectural distortion. 2. Additional mammographic views and possible breast ultrasound are recommended. BI-RADS Category 0: Incomplete: Needs additional imaging evaluation. Reviewed, dictated and finalized at location A. EXAMINER IMPRESSION: 1. Possible new areas of lateral architectural distortion. 2. Additional mammographic views and possible breast ultrasound are recommended . BI-RADS Category 0: Incomplete: Needs additional imaging evaluation.
== END ==
PROVIDERS: PCP Physician Assistant; Visit Provider Obstetrics & Gynecology
DX: Z12.31 Encounter for screening mammogram for malignant neoplasm of breast (principal); R92.8 Other abnormal and inconclusive findings on diagnostic imaging of breast
CPT/HCPCS: 77063; 77067

== ENCOUNTER 2024-01-25 09:35 | Outpatient (CLI) | payer BC, OTHER, SELFPAY ==
--- NOTE | ~2024-01-25 | MMUS_ITS ---
EXAMINATION: MM diagnostic [facility] BI w roberto carlos, US breast BI complete HISTORY: Possible architectural distortion seen in both breasts on prior examination. TECHNIQUE: Additional 3-D tomosynthesis images of the breasts were performed and synthetic 2-D images were generated. CAD analysis was submitted and interpreted. High resolution bilateral complete breas t ultrasound was performed. COMPARISON: Comparison to multiple prior studies sequentially, with oldest reviewed study dated 05/08. BREAST PARENCHYMAL COMPOSITION: Dense: The breasts are extremely dense, which lowers the sensitivity of mammography. FINDINGS: MAMMOGRAPHIC FINDINGS: There are no suspicious masses, calcifications or architectural distortion in either breast to sugges t malignancy. There are benign bilateral breast calcifications. ULTRASOUND: Complete bilateral US of all 4 quadrants of the breasts and retroareolar region was reviewed. There a re multiple simple cysts of both breasts. No suspicious masses in either breast to suggest malignancy . IMPRESSION: 1. No evidence for malignancy in either breast. Benign findings. 2. Routine yearly screening mammogram and regular clinical breast examination are recommended. BI-RADS Category 2: Benign finding(s). Reviewed, dictated and finalized at location A. IMPRESSION: 1. No evidence for malignancy in either breast. Benign findings. 2. Routine yearly screening mammogram and regular clinical breast examination a re recommended. BI-RADS Category 2: Benign finding(s).
== END 2024-01-25 09:36 ==
LOC: MICIMG 09:36
PROVIDERS: PCP Physician Assistant; Visit Provider Obstetrics & Gynecology
DX: R92.8 Other abnormal and inconclusive findings on diagnostic imaging of breast (principal)
CPT/HCPCS: 76641; 77062; 77066; G0279

== ENCOUNTER 2024-02-13 08:58 | Outpatient (CLI) | payer BC, OTHER, SELFPAY ==
--- NOTE | ~2024-02-13 | CT_ITS ---
EXAMINATION: CT diagnostic chest wo con DATE: 02/13/2024 09:33 INDICATION: R91.1 - Solitary pulmonary nodule TECHNIQUE: Computed tomography (CT) of the chest was performed without intravenous contrast. Addition al 3D reconstructions utilizing coronal maximum intensity projection (MIP) were performed. Automated exposure control and iterative reconstruction technique were employed. The dose-length product was 72 .31 mGy-cm. COMPARISON: 02/15/2023 FINDINGS: Unchanged pleural-based 5 mm and 4 mm nodules at the periphery of the posterior lateral left lower lo be. Also unchanged is a linear band of mild discoid atelectasis/scarring at the basilar left lower lo be. No new or enlarging pulmonary nodules, pneumonia, pulmonary edema or pleural effusion. Heart size is normal. Thoracic aorta is normal in caliber. No pathologically enlarged thoracic lymphadenopathy. Visualized upper abdomen is unremarkable. Mild upper thoracic dextrocurvature. IMPRESSION: 1. No interval change in a couple 5 mm and 4 mm pleural-based nodules in the left lower lobe which gi zora interval stability are likely benign. Reviewed, dictated and finalized at location A. IMPRESSION: 1. No interval change in a couple 5 mm and 4 mm pleural-based nodules in the le ft lower lobe which given interval stability are likely benign.
== END 2024-02-13 08:59 | disposition home or self-care (01) ==
PROVIDERS: PCP Physician Assistant; Visit Provider Physician Assistant
DX: R91.1 Solitary pulmonary nodule (principal)
CPT/HCPCS: 71250

== ENCOUNTER 2024-03-09 13:49 | Outpatient (CLI) | payer BC, OTHER, SELFPAY | END 2024-03-09 13:50 | disposition home or self-care (01) | LOC: ANHAUDIO 13:49 | PROVIDERS: PCP Family Medicine; Visit Provider Otolaryngology | DX: H93.13 Tinnitus, bilateral (principal); H90.3 Sensorineural hearing loss, bilateral | CPT/HCPCS: 92557; 92567 ==

== ENCOUNTER 2024-03-22 14:09 | Outpatient (CLI) | payer BC, OTHER, SELFPAY ==
--- NOTE | ~2024-03-22 | CT_ITS ---
EXAMINATION: CTA brain DATE: 03/22/2024 14:44 INDICATION: Pulsatile tinnitus, unspecified ear. TECHNIQUE: Computed tomographic angiography (CTA) of the head was performed without and with 100 mL O mnipaque-350 intravenous contrast. Automated exposure control and iterative reconstruction technique were employed. The dose-length product was 911.37 mGy-cm. Maximum intensity projection 3D reconstruc tions were created. Volume-rendered 3D reconstructions of the intracranial arteries were created by meghan davenport technologist on a separate workstation. COMPARISON: None. FINDINGS: There is no intracranial hemorrhage, acute infarction, or abnormal intracranial mass lesion . The ventricles are normal in size. The orbits are normal. There is mucosal thickening in the parana kay sinuses. The orbits are normal. The mastoid air cells are normal. The vertebral arteries are codo minant. There is no significant stenosis of basilar artery or the posterior cerebral arteries. The po sterior communicating arteries are normal. There is no significant stenosis of the intracranial inter nal carotid arteries or anterior or middle cerebral arteries. Anterior communicating artery is normal . There is no aneurysm. IMPRESSION: 1. Normal brain. No aneurysm or significant intracranial arterial stenosis. Reviewed, dictated and finalized at location A.
== END 2024-03-22 14:10 ==
LOC: MICIMG 14:10
PROVIDERS: PCP Family Medicine; Visit Provider Otolaryngology
DX: H93.A9 Pulsatile tinnitus, unspecified ear (principal)
CPT/HCPCS: 70496; Q9967

== ENCOUNTER 2025-04-16 13:48 | Outpatient (CLI) | payer BC, OTHER, SELFPAY ==
--- NOTE | ~2025-04-16 | CT_ITS ---
CT sinus wo con Ordering provider: Edgar Braden MD History: . J32.9 - Chronic sinusitis, unspecified . Comparison: March 22, 2024 Technique: Thin slice Scans CT of the paranasal sinuses was performed with coronal and sagittal refor matted images. No IV contrast. . Automated exposure control and iterative reconstruction technique w ere employed. The dose-length product was 280.01 mGy-cm. Findings: NASAL SEPTUM: Mild left nasal septal deviation. OSTEOMEATAL UNITS: Bilaterally obliterated. NASAL TURBINATES AND NASOPHARYNX: Normal. PARANASAL SINUSES: Bilateral ethmoid sinus disease. Right sphenoid sinus disease. Bilateral maxillary sinus disease. Bilateral frontal sinus disease. VISUALIZED MASTOIDS: Normal as visualized. BONES: Normal. SUPERFICIAL SOFT TISSUES/VISUALIZED BRAIN PARENCHYMA: Normal. IMPRESSION: Pansinusitis. Mild left nasal septal deviation. Bilateral ostiomeatal complex obliteration. Reviewed, dictated and finalized at location A.
== END 2025-04-16 13:49 | disposition home or self-care (01) ==
PROVIDERS: PCP Family Medicine; Visit Provider Otolaryngology
DX: J32.4 Chronic pansinusitis (principal); J33.9 Nasal polyp, unspecified; J34.2 Deviated nasal septum; J34.89 Other specified disorders of nose and nasal sinuses
CPT/HCPCS: 70486

== ENCOUNTER 2025-06-10 01:36 | Day surgery (SDC) | payer BC, OTHER, SELFPAY ==
[2025-05-29 14:18] VITALS: BMI 24.7
--- NOTE | 2025-05-29 14:28 | SUR.PREOP ---
Report to the Outpatient Waiting Room, entrance under the green pavilion located off [facility], at time 0830 on date 06/10/25. Planned Procedure Time: 1030.? Time changes happen often and if your time is changed the preop area will call you the afternoon before. - You and your visitor will be asked to self-screen and do not enter if you have any COVID symptoms. Please call surgeon if you need to reschedule. - A mask is optional within the hospital at this time. Patients may have clear liquids (water, carbonated beverages, clear teas, apple juice) until 3 hours prior to surgery with a maximum of 20 ounces. - No food from midnight until time of surgery and no smoking, or chewing tobacco (or any form of nicotine). No chewing gum, candy or mints. - Infants may have breast milk until 4 hours before surgery, formula 6 hours prior to surgery. - Children will be allowed to drink immediately following surgery.? If applicable, please bring a bottle or sippy cup to assist with drinking. Juice, water, soda, and popsicles are readily available.? For infants on formula, please bring formula the day of surgery.? Pacifiers are allowed. Take only the following medications with a SIP of water on the morning of surgery: ___n/a____ DO NOT STOP ANY OF YOUR OTHER PRESCRIPTION MEDICATIONS PRIOR TO SURGERY EXCEPT THE FOLLOWING Hold all vitamins and supplements for 3 days per anesthesiologist. Medications to discontinue per physician hold all vitamins and supplements 3 days prior Date to take last dose Please no make-up, nail vietnamese, hairspray, perfume, deodorant, or body powder the day of surgery.? No jewelry (including any body piercings) or valuables the day of surgery, leave them at home.? Please take a shower or bath the night before, or the morning of, surgery with an antibacterial soap.? Wear comfortable, loose fitting clothing.? Children are encouraged to wear pajamas. - Jewelry must be removed prior to entering the operating room.? Rings and piercings that are not removed may be cut off. - The hospital will not accept responsibility for valuables.? - Please leave all valuables, including medications, at home the day of surgery. If you are going home after surgery, a licensed boom truck driver must drive you home.? - NO public transportation without another adult if you receive anesthesia. - We recommend that an adult stay with you for 24 hours following discharge. - We also recommend that you do not drive, make important decision, drink alcoholic beverages, or take any drugs that were not prescribed by your health care provider for at least 24 hours after your discharge time. For Pediatric surgeries, we recommend two adults accompany the child home. Follow any additional instructions given to you from your surgeon. Telephone instructions given to __patient__and asked if any additional questions and then verbalized understanding. Patient advised to call surgeon office or pre surgery nurse liaison [phone] if any additional questions.
--- NOTE | 2025-06-09 12:50 | PM.IMHP ---
H&P: HPI History of Present Illness Date/Time: 06/09/25 12:50 Chief Complaint: Chronic sinusitis nasal polyposis nasal obstruction nasal congestion Narrative: Patient presents for planned surgical procedure Review of Systems Review of Systems: All systems reviewed & are unremarkable except as noted in HPI and below PMFSH Past Medical History Medical History (Updated 04/25/25 @ 11:44 by Dar Osnua MD) Hypothyroidism Other fatigue Endometriosis GERD (gastroesophageal reflux disease) Vitamin D deficiency Chronic sinusitis Surgical History Surgical History (Reviewed 04/25/25 @ 11:00 by Estrella Calvillo [facility]) History of hysterectomy left salpingo-oopherectomy 11/11/2023 History of right salpingo-oophorectomy fibroid removal 2015 History of D&C miscarriage 2000 History of laparoscopy endometriosis 1994, 1997 History of surgery on lower extremity closed reduction due to fracture 1979 H/O colonoscopy Social History Social History (Reviewed 04/25/25 @ 11:00 by Estrella Calvillo [facility]) Smoking status: Never smoker Alcohol intake: never Substance use: never Substance use type: does not use Do You Feel Safe in your Home?: Yes Lack of Transportation: No Lack of Food: Never True Current Housing: I Have Housing Concerned About Future Housing: No Difficulty Paying Gas/Electric Bills: No Difficulty Paying for Meds: No Currently Unemployed: YES Education: Trade/Vocational Certificate Difficulty w/ Childcare or Family Care: No Living arrangements: with family Occupation/Education: unemployed Gender identity (if verbalized by the patient): Female Sexual Orientation (if Verbalized by the Patient): Straight or Heterosexual Spiritual care concerns: No Meds Home Medications and Allergies Home Medications ?Medication ?Instructions ?Recorded ?Confirmed ?Type cholecalciferol (vitamin D3) 25 25 mcg PO DAILY #30 caps 02/11/23 05/29/25 Rx mcg (1,000 unit) capsule multivitamin with minerals-folic 1 tablet PO ONCE 11/02/23 05/29/25 History acid 80 mcg chewable tablet (Centrum Adult 50 Plus) prednisone 10 mg tablet 10 mg PO QAM #10 tabs 06/05/25 Rx Allergies Allergy/AdvReac Type Severity Reaction Status Date / Time Dairy Allergy Intermediate diarrhea/stomach Uncoded 05/29/25 14:30 pain Exam Narrative: Septal deviation turbinate hypertrophy nasal polyps chronic appearing sinuses Assessment and Plan Assessment and plan (1) Chronic sinusitis: Code(s): J32.9 - Chronic sinusitis, unspecified Status: Acute Assessment and Plan: Plan OR bilateral image guided endoscopic maxillary antrostomies total ethmoidectomies frontal sinusotomies right-sided sphenoidotomy for sure possible left side. Endoscopic assisted septoplasty nasal polypectomy and inferior turbinate reduction with outfracture bilaterally. See previous HPI for risks discussed with the included bleeding infection damage to any structures need further procedures change in taste change in swallow damage to any structure of the clavicle myself damage any structures the induction remains anesthesia total blindness CSF leak change in vision brain brain damage septal perforation need for further procedures failure to resolve symptoms. Time-out for time off school inherent risk medication use. Patient voiced understanding of these risks and agreed. (2) Hoarse voice quality: Code(s): R49.0 - Dysphonia Status: Acute (3) Nasal polyps: Code(s): J33.9 - Nasal polyp, unspecified Status: Acute (4) Nasal septal deviation: Code(s): J34.2 - Deviated nasal septum Status: Acute (5) Hypertrophy of both inferior nasal turbinates: Code(s): J34.3 - Hypertrophy of nasal turbinates Status: Acute
[2025-06-10] VITALS (9 sets, daily range): BP systolic 108–138; BP diastolic 63–92; PULSE 71–89; RESP 12–20; TEMP 36.3–36.7; O2SAT 94–100; BMI 25.0
--- OUTSIDE RECORDS SUMMARY | 2025-06-10 01:39 | XMS_ITS | Clinical Summary ---
Author Organization [facility] Healthcare Address [address] [place] [address] Care Team Providers Care Photo Optics Technician Name Role Phone Libby Crews Primary Care Provider [phone] Allergies No known active allergies Medications vitamin D3-vitamin K2 25 mcg (1,000 unit)-90 mcg tablet,disinteg rating Take by mouth Active multivit-minera ls/folic acid (CENTRUM ADULT 50 PLUS ORAL) 4 Active budesonide (Pulmicort) 0.5 mg/2 mL nebulizer solutionIndicat ions:Pulsatile tinnitus Mix 1 capsule/ampule in 250 ml of saline irrigation (YOLI MED SINUS RINSE) and irrigate each nostril with half of the bottle twice a day. 120 mL 6 4 Active Active Problems Problem Noted Date Diagnosed Date Pulsatile tinnitus 07/27/2024 Sensation of fullness in left ear 07/27/2024 Nasal polyps 07/27/2024 Abnormal thyroid function test 06/18/2024 Assessment & Plan (06/18/2024 2:35 PM CDT): Pathophysiology of thyroid disease was discussed with the patient and With a TSH of 0.3 she probably has very mild subclinical hyperthyroidism for which there be no indication for treatment I will update TFTs including TPO antibody If free T4 and free T3 are within normal range, will continue just with observation Otherwise, will call with some other specific recommendations Encounters Date Type Department Care Team Description 05/14/2025 2:00 PM CDT Ancillary Procedure [facility] Cardiology [address] [address] [address] [place] [id number] Shortness of breath from Last 3 Months Family History Medical History Relation Name Comments thyroid problems Mother Relation Name Status Comments Mother Alive Social History Tobacco Use Types Packs/Day Years Used Date Smoking Tobacco: Never Smokeless Tobacco: Never Tobacco Cessation:Counseling Given: Not Answered AUDIT-C Answer Date Recorded Q1: How often do you have a drink containing alcohol? Never 06/18/2024 Q2: How many drinks containi ng alcohol do you have on a typical day when you are drinking? Patient does not drink Q3: How often do you have si x or more drinks on one occasion? Never 06/18/2024 PHQ-2 Answer Date Recorded PHQ-2 Total Score (If total score is 3 or more points, staff should administer the PHQ-9) 0 06/18/2024 Comments Unknown Sex and Gender Information Value Date Recorded Sex Assigned at Not on file Legal Sex Female 2:04 PM CDT Gender Identity Female 04/25/2024 7:36 PM CDT Sexual Orientation Straight 04/25/2024 7: 36 PM CDT Obstetrics History Last Filed Vital Signs Vital Sign Reading Time Taken Comments Blood Pressure 116/84 07/27/2024 9:48 AM CDT Pulse 93 07/27/2024 9:48 AM CDT Temperature - - Respiratory Rate 17 06/18/2024 1:38 PM CDT Oxygen Saturation - - Inhaled Oxygen Concentration - - Weight 58.8 kg (129 lb 9.6 oz) 07/27/2024 9:48 A M CDT Height 157.5 cm (5' 2.01) 07/27/2024 9:48 AM CD T Body Mass Index 23.7 07/27/2024 9:48 AM CDT Plan of Treatment Health Maintenance Due Date Last Done Comments Breast Cancer Screening-Mammogram 1972 Cervical Cancer Screening 1972 Colon Cancer Screening-Colonoscopy 1972 Hepatitis C Screening 1972 DTaP/Tdap/Td Vaccine (1 - Tdap) 1983 Hepatitis B Screening 1990 Regular Well Visit/Exam 18-64 1990 Zoster Vaccine (1 of 2) 2022 Depression Screening 06/18/2025 06/18/2024 Influenza Vaccine (#1) 2025 Pneumococcal vaccine <65 Aged Out No longer eligible based on patient's age to complete this topic Procedures Procedure Name Priority Date/Time Associated Diagnosis Comments STRESS ECHO EXERCISE W DOPPLER/CF W CONTRAST Routine 05/14/2025 4:10 PM CDT Shortness of breath from Last 3 Months Results * STRESS ECHO EXERCISE W DOPPLER/CF W CONTRAST (05/14/2025 4:10 PM CDT) Anatomical Region Laterality Modality Ultrasound 05/14/2025 2:03 PM CDT Narrative 05/15/2025 7:51 AM CDT [facility] [address] [facility] [address] [facility] [address] [address] [address] [facility] [address], [place] [address] P:[phone] P:[phone] Echocardiographic Report Patient Name: ANA VACA : 1970 Study Date: 05/14/2025 2:03:11 PM Gender: F Tip Puncher: Shahla Kaiser ([place])([place]), [facility] Location: [facility] Provider: ZEKE OSUNA Height(Cm): 157 BSA: 1.6 Weight(Kg): 58.5 Heart Rate: 73 BP: 136 / 98 Quality: Good Order Provider: ZEKE OSUNA PROCEDURES: Stress Echo Report: Treadmill stress echocardiogram with Definity contrast. INDICATIONS: Medications: budesonide (Pulmicort) 0.5 mg/2 mL nebulizer solution multivit-minerals/folic acid (CENTRUM ADULT 50 PLUS ORAL) vitamin D3-vitamin K2 25 mcg (1,000 unit)-90 mcg tablet,disintegrating Stress test monitored by: Deana Alicia RN R06.02 Shortness of breath. FINDINGS: Stress Echo: Protocol - Espinoza Protocol. Exercise Time - 9.00 min Baseline Heart Rate - 74 Peak Heart Rate - 166 Predicted Maximal Heart Rate - 168 85% MPHR - 143 Baseline BP - 110/68 Peak BP - 148/70 Rate Pressure Product - 47930 METS Achieved - 10.10 Percent Predicted Maximal HR Achieved - 99 % Interpretation Site: Exam was interpreted at [facility]. Performance: Average exercise functional capacity. Hemodynamic Response: Normal blood pressure response. Arrhythmia: No exercise induced arrhythmias. Termination: Weakness, Dizziness. Resting ECG: Normal EKG. Exercise ECG: Normal exercise ECG. Resting LV Function: Normal left ventricular size, normal systolic function, normal wall thickness with no segmental wall motion abnormalities at rest. Definity contrast agent used to visually enhance endocardial wall motion and contractility. Lot Number [id number]. Post Stress LV Function: Post exercise left ventricular global systolic contractility is hyperdynamic, no segmental wall motion abnormalities, and chamber size is smaller. CONCLUSIONS: Protocol - Espinoza Protocol. Exercise Time - 9.00 min. Baseline Heart Rate - 74. Peak Heart Rate - 166. Predicted Maximal Heart Rate - 168. 85% MPHR - 143. Baseline BP - 110/68. Peak BP - 148/70. Rate Pressure Product - 40594. METS Achieved - 10.10. Percent Predicted Maximal HR Achieved - 99 %. Normal EKG. Normal exercise ECG. Normal left ventricular size, normal systolic function, normal wall thickness with no segmental wall motion abnormalities at rest. Definity contrast agent used to visually enhance endocardial wall motion and contractility Lot Number [id number]. Post exercise left ventricular global systolic contractility is hyperdynamic, no segmental wall motion abnormalities, and chamber size is smaller. Stress echocardiogram negative for inducible ischemia at MPHR: 99 %. Electronically Signed By: Edison Tolliver MD, [facility] 05/15/2025 7:50:53 AM CDT Procedure Note Edison Tolliver MD - 05/15/2025 [facility] [address] [facility] [address], [place] [address] [address] [facility] [address], [place] [address] P:[phone] P:[phone] Echocardiographic Report Patient Name: ANA VACA : 1970 Study Date: 05/14/2025 2:03:11 PM Gender: F Tip Puncher: Shahla Phillips)([place]), [facility] Location: [facility] Provider: ZEKE OSUNA Height(Cm): 157 BSA: 1.6 Weight(Kg): 58.5 Heart Rate: 73 BP: 136 / 98 Quality: Good Order Provider: ZEKE OSUNA PROCEDURES: Stress Echo Report: Treadmill stress echocardiogram with Definity contrast. INDICATIONS: Medications: budesonide (Pulmicort) 0.5 mg/2 mL nebulizer solution multivit-minerals/folic acid (CENTRUM ADULT 50 PLUS ORAL) vitamin D3-vitamin K2 25 mcg (1,000 unit)-90 mcg tablet,disintegrating Stress test monitored by: Deana Alicia, RN R06.02 Shortness of breath. FINDINGS: Stress Echo: Protocol - Espinoza Protocol. Exercise Time - 9.00 min Baseline Heart Rate - 74 Peak Heart Rate - 166 Predicted Maximal Heart Rate - 168 85% MPHR - 143 Baseline BP - 110/68 Peak BP - 148/70 Rate Pressure Product - [id number] METS Achieved - 10.10 Percent Predicted Maximal HR Achieved - 99 % Interpretation Site: Exam was interpreted at [facility]. Performance: Average exercise functional capacity. Hemodynamic Response: Normal blood pressure response. Arrhythmia: No exercise induced arrhythmias. Termination: Weakness, Dizziness. Resting ECG: Normal EKG. Exercise ECG: Normal exercise ECG. Resting LV Function: Normal left ventricular size, normal systolic function, normal wallthickness with no segmental wall motion abnormalities at rest. Definity contrast agent usedto visually enhance endocardial wall motion and contractility. Lot Number [id number]. Post Stress LV Function: Post exercise left ventricular global systolic contractility ishyperdynamic, no segmental wall motion abnormalities, and chamber size is smaller. CONCLUSIONS: Protocol - Espinoza Protocol. Exercise Time - 9.00 min. Baseline Heart Rate -74. Peak Heart Rate - 166. Predicted Maximal Heart Rate - 168. 85% MPHR - 143. BaselineBP - 110/68. Peak BP - 148/70. Rate Pressure Product - 40320. METS Achieved - 10.10.Percent Predicted Maximal HR Achieved - 99 %. Normal EKG. Normal exercise ECG. Normal left ventricular size, normal systolic function, normal wallthickness with no segmental wall motion abnormalities at rest. Definity contrast agent usedto visually enhance endocardial wall motion and contractility Lot Number [id number]. Post exercise left ventricular global systolic contractility ishyperdynamic, no segmental wall motion abnormalities, and chamber size is smaller. Stress echocardiogram negative for inducible ischemia at MPHR: 99 %. Electronically Signed By: Edison Tolliver MD, [facility] 05/15/2025 7:50:53 AM CDT Zeke Osuna MD CV ECHO PROCEDURES Final Resu lt from Last 3 Months Insurance [facility] [employer] Member Subscriber Plan / Payer (Ef fective 2016-Present) Name:Ana Vaca Relation to Subscriber:Spouse Name:Darío Vaca Date of :1976 Address: [facility] [address] [place] [address] Payer ID:[id number] (NAIC) Group ID:[id number] Type:[facility] Address: [facility] [id number] [facility] [employer] Member Subscriber Plan / Payer (Ef fective 2016-Present) Name:Ana Vaca Relation to Subscriber:Spouse Name:DARÍO VACA Date of :1976 (Home) Address: [address] [place] [id number] Payer ID:[id number] (NAIC) Group ID:[id number] Type:[facility] Address: [address] Care Teams Photo Optics Technician Relationship Specialty Start Date End Date Libby Crews PA [address] [place] [id number] PCP - General Family Medicine 03/06/24
--- NOTE | 2025-06-10 07:20 | WPDHPUPDATE1 ---
History and Physical Update Update Date/Time: 06/10/25 07:20 History and Physical has been reviewed, including an updated exam of the patient. There are NO changes in the patient's condition. Risks, benefits, and alternatives have been discussed and questions answered. Patient agrees to proceed with procedure.
[2025-06-10] MEDS: LACTATED RINGERS 1,000 ML 30 ML IV CONT ×2 (09:00→13:17)
[2025-06-10] MEDS: ACETAMINOPHEN 500 MG TABLET 1000 MG PO (09:05)
--- NOTE | 2025-06-10 09:08 | P.PNAN_ITS ---
Anes - Initial Pre Proc Eval Procedure: Operation Date: 06/10/25 10:30 Proposed Procedures p Image Guided Endoscopic Bilateral Maxillary Antrostomy, Bilateral Total Ethmoidectomy, Bilateral Sphenoidotomy, Bilateral Frontal Sinusotomy, - Edgar Braden MD s Endoscopic Assisted Septoplasty, Bilateral Inferior Turbinate Reduction with Outfracture - Edgar Braden MD Date/Time: 06/10/25 09:08 Surgeon: Edgar Braden MD Pre Op Diagnosis: chronic sinusitis, nasal polyp, deviated septum Patient Data Age: 54 Gender: F Height: 1.57 m Weight: 61.24 kg Allergies Allergy/AdvReac Type Severity Reaction Status Date / Time Dairy Allergy Intermediate diarrhea/stomach Uncoded 06/10/25 09:06 pain Home Medications ?Medication ?Instructions ?Recorded ?Confirmed ?Type cholecalciferol (vitamin D3) 25 25 mcg PO DAILY #30 caps 02/11/23 06/10/25 Rx mcg (1,000 unit) capsule multivitamin with minerals-folic 1 tablet PO ONCE 11/02/23 06/10/25 History acid 80 mcg chewable tablet (Centrum Adult 50 Plus) prednisone 10 mg tablet 10 mg PO QAM #10 tabs 06/05/25 06/10/25 Rx Patient hx anesthesia problems: none Family hx anesthesia problems: none Results Review: All pre-operative results and documents have been reviewed as part of the pre- operative evaluation. [facility] Past Medical History Medical History (Updated 06/10/25 @ 08:33 by Sina Guerrier DO) Lung nodule Hypothyroidism Other fatigue Endometriosis GERD (gastroesophageal reflux disease) Vitamin D deficiency Chronic sinusitis Surgical History Surgical History History of hysterectomy left salpingo-oopherectomy 11/11/2023 History of right salpingo-oophorectomy fibroid removal 2015 History of D&C miscarriage 2000 History of laparoscopy endometriosis 1994, 1997 History of surgery on lower extremity closed reduction due to fracture 1979 H/O colonoscopy Social History Social History Smoking status: Never smoker Alcohol intake: never Substance use: never Substance use type: does not use Do You Feel Safe in your Home?: Yes Lack of Transportation: No Lack of Food: Never True Current Housing: I Have Housing Concerned About Future Housing: No Difficulty Paying Gas/Electric Bills: No Difficulty Paying for Meds: No Currently Unemployed: YES Education: Trade/Vocational Certificate Difficulty w/ Childcare or Family Care: No Living arrangements: with family Occupation/Education: unemployed Gender identity (if verbalized by the patient): Female Sexual Orientation (if Verbalized by the Patient): Straight or Heterosexual Spiritual care concerns: No Anes - Eval Final PreProcedure Day of Procedure 06/10/25 09:08 Patient weight: normal Heart: regular rate and rhythm Lungs: clear to auscultation Airway: Mallampati scale class II Neurological: alert and oriented Last oral intake: >/= 8 hours ASA classification: II Emergent: no Anesthetic plan: proceed Anesthesia type and monitoring: general ETT and standard monitoring Results Review: All pre-operative results and documents have been reviewed as part of the pre- operative evaluation. Informed Consent: The patient's anesthetic plan and its attendant risks and benefits were discussed with the patient/family/POA. Questions were solicited and answers provided to the satisfaction of the patient/family/POA.
[2025-06-10] MEDS: ceFAZolin 2 GM in SODIUM CHLORIDE 0.9% IV 50 ML 100 ML IVPB (10:31)
[2025-06-10] MEDS: LIDO 1%/EPINEPHRINE 1:100,000 20 ML VIAL 8 ML INFILTRATE (11:09)
[2025-06-10] MEDS: OXYMETAZOLINE HCL 0.05% NAS 15 ML BTL (*BKC) 1 SPRAY NASAL (11:11)
[2025-06-10] MEDS: MUPIROCIN 2% OINT 22 GM TUBE 1 APPLIC EACH NARE (12:43)
[2025-06-10] MEDS: fentaNYL CITRATE INJ (*CRX) 100 MCG/2 ML VIAL 25 MCG IV PUSH ×6 (13:31→14:10)
--- NOTE | 2025-06-10 16:57 | P.OP_ITS ---
Procedure Note - Detailed Date of Procedure 06/10/25 Pre-op Diagnosis chronic sinusitis, nasal polyp, deviated septum , turbinate hypertrophy Post-op Diagnosis Same Procedure Performed 1. Bilateral image guided endoscopic maxillary antrostomy 2. Bilateral image guided total ethmoidectomy 3. Bilateral image guided frontal sinusotomy 4. Bilateral image guided sphenoidotomy 5. Endoscopic assisted septoplasty 6. Bilateral inferior turbinate outfracture 7. Nasal polypectomy Surgeon Edgar Braden MD Anesthesia General Indications see above Findings hypertrophied turbinates, necessitating outfracture for better access to the middle meati eye. Severely deviated nasal septum obstructing the middle meati I had to correct this as well. Polyps on the ethmoid bulla ethmoid cavity in the maxillary sinuses polypoid edema sphenoids had polypoid edema as well. Es sentially polyps throughout. Frontal sinuses very narrow as able to open up the outflow is to about 2-3 mm. Frontal sinus mucosa appeared much more normal than the remainder of the sinuses so decision was made to not perform drill out to be. Description of Procedure patient identified consent verified the preop holding area. Patient was was brought to the operating room time-out performed. General anesthesia induced endotracheal tube secured the patient's airway. Patient prepped draped position 2nd time-out performed. Image guidance initiated and confirmed. Total 15 cc 1% lidocaine with 1 100,000 parts epinephrine injected the bilateral nasal septum and inferior turbinates. Ismael incision made left-sided left nasal septal flap elevated. Osteotome utilized to cross over. Right nasal septal flap elevated. Deviated septum removed Narciso Garcia forceps Arsen forceps and osteotome. Minimal bleeding. Septal flaps irrigated with sterile normal saline [place] incision closed with 4 interrupted 5 0 fast gut sutures. Inferior turbinates outfractured for better access the middle meati eye. Maxillary antrostomies performed with double ball tip probe backbiter straight through cut image guidance and image guided microdebrider. Total ethmoidectomy performed with [place] microdebrider and image guided suction. Nasal polypectomy was performed with microdebrider bilateral. Total ethmoids were bilateral as well. Sphenoidotomies performed with [place] image guidance [place] and sphenoid punch. Great care was taken to not injure any structures located around the sphenoid sinus as well as the posterior nasal artery. Throughout the procedure they nasal passages were irrigated with sterile warm saline. Frontal sinusotomies performed with image guidance frontal sinus suction 70 degree scope and frontal seeker. Was able to see into the frontal sinuses bilaterally. The decision was made to not perform to drill out and 2B fashion given that the mucosa looked fairly good in the frontal sinuses. Again the wounds wrist area irrigated with sterile normal saline. Nova pack was placed bilaterally. Perkins splints were then paid placed bilaterally sutured anteriorly using a 3-0 mattress nylon suture. Great care was taken to ensure that the [place] splints were lateral to the middle turbinates bilaterally. Patient tolerated the procedure very well. Blood loss 50 cc. I performed all dictated portions of the procedure there were no complications. Patient was taken back to PACU. Estimated Blood Loss 50 Drains No Packing Yes ( Nova pack) Pathology None sent Complications No immediate complications Condition Stable Disposition PACU [facility] Billing Surgery - Charge Forward: Surgery Billing
== END 2025-06-10 15:22 | disposition home or self-care (01) ==
PROVIDERS: PCP Family Medicine; Visit Provider Otolaryngology
PROC: (CPT 31256; principal; 2025-06-10 10:30)
PROC: (CPT 30520; 2025-06-10 10:30)
DX: J32.9 Chronic sinusitis, unspecified (principal); J34.2 Deviated nasal septum; J34.3 Hypertrophy of nasal turbinates; J33.8 Other polyp of sinus; G89.18 Other acute postprocedural pain; E03.9 Hypothyroidism, unspecified; R53.83 Other fatigue; N80.9 Endometriosis, unspecified; K21.9 Gastro-esophageal reflux disease without esophagitis; E55.9 Vitamin D deficiency, unspecified; Z79.52 Long term (current) use of systemic steroids; Z98.890 Other specified postprocedural states
CPT/HCPCS: 31256; 31276; 31257; 30520; 30140; 61782; J0690; A9270; J2004; J2250; J3010; J7120

== ENCOUNTER 2025-10-22 12:34 | Outpatient (CLI) | payer BC, OTHER, SELFPAY ==
--- NOTE | ~2025-10-22 | MM_ITS ---
EXAMINATION: MM screening [facility] w roberto carlos HISTORY: Screening TECHNIQUE: Craniocaudal and mediolateral oblique 3-D tomosynthesis images were obtained and synthetic 2-D images were generated. CAD analysis was submitted and interpreted. COMPARISON: 2023, 2022, and 2021 BREAST PARENCHYMAL COMPOSITION: The breast tissue is heterogeneously dense, which may obscure small masses. FINDINGS: There are findings consistent with the known breast cysts. No suspicious masses are seen. There are no suspicious calcifications. No unexplained architectural distortion is seen. There are no skin or nipple abnormalities identified. There is no adenopathy seen on the images submitted. IMPRESSION: No mammographic evidence to suggest malignancy is seen. The patient may return to screening mammography as per ACR guidelines. BI-RADS 2 - Benign. Reviewed, dictated and finalized at location [facility]
== END 2025-10-22 12:35 | disposition home or self-care (01) ==
LOC: MICIMG 12:37
PROVIDERS: PCP Family Medicine; Visit Provider Obstetrics & Gynecology
DX: Z12.31 Encounter for screening mammogram for malignant neoplasm of breast (principal)
CPT/HCPCS: 77063; 77067